=== PATIENT | female | born 1960 | race Caucasian/White ===

== ENCOUNTER → 2022-08-16 | Day surgery (SDC) | payer MEDICAID ==
[~2022-08-16] VITALS: Ht 154.9 cm; Wt 54.4 kg
[~2022-08-16] MED LIST: BUPIVACAINE HCL 300 MG IMPLANT(XARACOLL) IL NR; BUPIVACAINE HCL/PF 0.5% (5MG/ML) 10ML ONE; CEFAZOLIN SODIUM 1000MG/VIAL ONE; EPHEDRINE SULFATE 50MG/ML VIAL ONE; FENTANYL CITRATE/PF 50MCG/ML 2ML VIAL ONE; HYDROMORPHONE HCL/PF 2MG/ML CPJ IV PRN; KETOROLAC 30MG/ML VIAL ONE; LACTATED RINGERS 1,000 ML IV SCH; LEVO50TA8 PO; MEPERIDINE HCL/PF 25MG/ML CPJ IV PRN; MIDAZOLAM HCL 2 MG/2 ML VIAL ONE; NON FORMULARY PATIENT HOME MED XX SCH; ONDANSETRON HCL 4MG/2ML INJ IV PRN; ONDANSETRON HCL 4MG/2ML INJ ONE; PROPOFOL 200MG/20ML VIAL IV ONE; SIMV-43 PO; SKIN ADHESIVE 0.7 GM EA TOP ONE
[2022-08-16] MEDS: FENTANYL CITRATE/PF 50MCG/ML 2ML VIAL IV PRN ×2 (14:45→15:04)
[2022-08-16 15:04] VITALS: BP 114/62
== END | disposition home or self-care (01) ==
LOC: OR 06:58
PROVIDERS: ATTEND Surgery
DX: K40.90 Unilateral inguinal hernia, without obstruction or gangrene, not specified as recurrent (principal); E03.9 Hypothyroidism, unspecified; E78.00 Pure hypercholesterolemia, unspecified; E78.2 Mixed hyperlipidemia; Z79.899 Other long term (current) drug therapy; Z98.890 Other specified postprocedural states; Z20.822 Contact with and (suspected) exposure to COVID-19
CPT/HCPCS: 49505; 82962; 87426; C1781; C9803; J0690; J1885; J2250; J2405; J2704; J3010; J3490; C9089